=== PATIENT | female | born 1970 | race Caucasian/White ===

== ENCOUNTER 2017-06-02 15:19 | Emergency (ER) | payer OTHER ==
[~2017-06-02] VITALS: Ht 172.7 cm; Wt 57.6 kg
[~2017-06-02 15:19] MED LIST: BUPR-51 PO; CALC600T12 PO; IRON1TAB96 PO; MAGN500C4 PO; NORE-35 PO; OMEP20CA4 PO; SUCR1TAB26 PO; [UNRECOGNIZED DRUG - OTHER] PO
--- NOTE | 2017-06-02 15:41 | NUR ---
PATIENT TO E DT BLE ACUTE EXACERBATION OF PITITNG EDEMA X 2 DAYS WORT TODAY. NO SOB NOTED. PATIENT DENIES PAIN. VSS
--- NOTE | 2017-06-02 15:42 | NUR ---
DIAMOND GOODWIN AT BS
--- NOTE | 2017-06-02 16:01 | NUR ---
PATIENT IS BACK FROM CT
[2017-06-02 16:11] LABS: BASOPHILS % (AUTO) 0.6 % (0.0-2.0); EOSINOPHILS # (AUTO) 0.2 /CMM (0.0-0.7); EOSINOPHILS % (AUTO) 2.6 % (0.0-6.0); HEMATOCRIT 39 % (33-45); HEMOGLOBIN 13.3 g/dL (11.5-14.8); LYMPHOCYTES # (AUTO) 1.3 /CMM (0.8-4.8); LYMPHOCYTES % (AUTO) 20.7 % (20.0-44.0); MEAN CORPUSCULAR HEMOGLOBIN 34 PG (26.0-33.0); MEAN CORPUSCULAR HGB CONC 35 g/dl (31.0-36.0); MEAN CORPUSCULAR VOLUME 100 fL (82-100); MONOCYTES # (AUTO) 0.5 /CMM (0.1-1.30); MONOCYTES % (AUTO) 8.6 % (2.0-12.0); NEUTROPHILS # (AUTO) 4.1 /CMM (1.8-8.9); NEUTROPHILS % (AUTO) 67.5 % (43.0-81.0); PLATELET COUNT (AUTO) 320 /CMM (150-450); RDW COEFFICIENT OF VARIATION 12.2 (11.5-15.0); RED BLOOD CELL COUNT(AUTO) 3.86 MIL/uL (4.0-5.2); WHITE BLOOD COUNT (AUTO) 6.1 K/uL (4.3-11.0)
[2017-06-02 16:21] LABS: CALCIUM, SERUM 8.2 mg/dL (8.5-10.1); CREATININE 0.8 mg/dL (0.6-1.3); POTASSIUM 3.9 mmol/L (3.5-5.1)
[2017-06-02 17:08] VITALS: BP 130/80
--- NOTE | 2017-06-02 17:08 | NUR ---
Patient discharged to home in stable condition. Written and verbal after care instructions given. Patient verbalizes understanding of instruction.
== END 2017-06-02 17:10 | disposition home or self-care (01) ==
LOC: ER 15:28
DX: R60.0 Localized edema (principal); K44.9 Diaphragmatic hernia without obstruction or gangrene; F17.200 Nicotine dependence, unspecified, uncomplicated; Z91.013 Allergy to seafood
CPT/HCPCS: 36415; 80048; 85025; 93970; 99285; A4606; Z7610